=== PATIENT | female | born 1980 | race Caucasian/White ===

== ENCOUNTER → 2024-10-08 10:24 | Outpatient (REF) | payer BC, SELFPAY | LOC: HWWDC 10:24 | PROVIDERS: ATTENDING PHYSICIAN Obstetrics & Gynecology | DX: Z12.31 Encounter for screening mammogram for malignant neoplasm of breast (principal) | CPT/HCPCS: 77063; 77067 ==

== ENCOUNTER → 2024-11-08 08:43 | Outpatient (REF) | payer BC, SELFPAY | LOC: WDC 08:43 | PROVIDERS: ATTENDING PHYSICIAN Obstetrics & Gynecology | DX: R92.2 Inconclusive mammogram (principal) | CPT/HCPCS: 76641 ==